=== PATIENT | female | born 1980 | race Caucasian/White ===

== ENCOUNTER 2018-10-27 19:30 | Emergency (ER) | payer BC ==
[2018-10-27 19:52] VITALS: Ht 149.9 cm
[2018-10-27 20:38] LABS: BASOPHIL % 0.4 % (0-2); PLATELET COUNT 290 x10^3mcL (130-400); RED CELL DISTRIBUTION WIDTH 14.2 % (11.5-14.5)
[2018-10-27 21:15] LABS: UA SPECIFIC GRAVITY >=1.030 (1.005-1.035); microscopic required? YES; urine erythrocyte 3+ (NEGATIVE)
[2018-10-28 00:21] VITALS: BP 119/63
== END 2018-10-28 00:22 | disposition home or self-care (01) ==
LOC: ED 19:30
PROVIDERS: Emergency Medicine
DX: O20.0 Threatened abortion (principal); Z88.1 Allergy status to other antibiotic agents; Z88.5 Allergy status to narcotic agent; Z98.890 Other specified postprocedural states
CPT/HCPCS: 36415

== ENCOUNTER 2018-10-30 06:41 | Emergency (ER) | payer BC ==
[~2018-10-30] VITALS: Ht 149.9 cm; Wt 100.2 kg
[2018-10-30 06:47] VITALS: Ht 149.9 cm; Wt 100.2 kg
[2018-10-30 07:07] LABS: BASOPHIL % 0.6 % (0-2); PLATELET COUNT 268 x10^3mcL (130-400); RED CELL DISTRIBUTION WIDTH 14.2 % (11.5-14.5)
[2018-10-30 08:42] VITALS: BP 126/74
== END 2018-10-30 08:42 | disposition home or self-care (01) ==
LOC: ED 06:41
PROVIDERS: Emergency Medicine
DX: O20.0 Threatened abortion (principal); E28.2 Polycystic ovarian syndrome; Z98.890 Other specified postprocedural states; Z90.49 Acquired absence of other specified parts of digestive tract; Z88.5 Allergy status to narcotic agent; Z88.1 Allergy status to other antibiotic agents
CPT/HCPCS: 36415